=== PATIENT | male | born 1960 | race African-American/Black ===

== ENCOUNTER 2020-04-02 19:25 | Emergency (ER) | payer MEDICARE, OTHER, MEDICAID ==
[~2020-04-02] VITALS: Ht 175.3 cm; Wt 82.0 kg
[~2020-04-02 19:25] MED LIST: LOSA25TA26 PO; METF-414 PO; SERT25TA PO; TRAZ-252 PO; [UNRECOGNIZED DRUG - OTHER]
[2020-04-02 19:45] VITALS: BP 134/76
[2020-04-02] MEDS ORDERED: SODIUM CHLORIDE 0.9% 1,000 ML IV ONE (19:56)
[2020-04-02] MEDS ORDERED: ONDANSETRON HCL 4MG/2ML INJ IV STA (19:56)
[2020-04-02 20:44] LABS: BASOPHILS % 1.7 % (0.0-2.0); EOSINOPHILS % 0.4 % (0.0-5.0); HEMATOCRIT. 33.4 % (42.0-52.0); HEMOGLOBIN. 11.5 g/dL (14.0-18.0); LYMPHOCYTES % 19.5 % (20.0-50.0); MEAN CORPUSCULAR HEMOGLOBIN 32.8 pg (28.0-32.0); MEAN CORPUSCULAR VOLUME 95.7 fL (80.0-94.0); MEAN PLATELET VOLUME 7.6 fl (7.4-10.4); MONOCYTES % 6.1 % (2.0-8.0); NEUTROPHILS % 72.3 % (40.0-76.0); PLATELET 313 x1000/uL (130-400); RED BLOOD CELL COUNT 3.49 mill/uL (4.7-6.1); RED CELL DISTRIBUTION WIDTH 15.2 % (11.6-14.6)
[2020-04-02 20:45] LABS: CLARITY URINE CLEAR (CLEAR); COLOR URINE YELLOW (YELLOW); KETONES URINE TRACE (NEGATIVE); LEUKOCYTE ESTERASE URINE NEGATIVE (NEGATIVE); NITRITE URINE NEGATIVE (NEGATIVE); OCCULT BLOOD URINE NEGATIVE (NEGATIVE); PH URINE 5.5 (4.5-8.0); PROTEIN URINE NEGATIVE (NEGATIVE); SPECIFIC GRAVITY URINE 1.012 (1.005-1.030)
[2020-04-02 20:53] LABS: CHLORIDE 97 mEq/L (98-107)
[2020-04-02 21:25] LABS: ETHANOL BLOOD 423 mg/dL
[2020-04-02 21:30] LABS: *AMPHETAMINES SCREEN URINE NEGATIVE (NEGATIVE); *BARBITURATES SCREEN URINE NEGATIVE (NEGATIVE); *BENZODIAZEPINES SCREEN URINE NEGATIVE (NEGATIVE); *COCAINE SCREEN URINE NEGATIVE (NEGATIVE); OPIATES URINE SCREEN NEGATIVE (NEGATIVE); PHENCYCLIDINE URINE SCREEN NEGATIVE (NEGATIVE)
[2020-04-02 21:31] LABS: CANNABINOID URINE SCREEN NEGATIVE (NEGATIVE)
[2020-04-02 21:33] LABS: METHADONE URINE SCREEN NEGATIVE (NEGATIVE)
== END 2020-04-02 21:30 | disposition left against medical advice (07) ==
LOC: ER 19:25
DX: F10.129 Alcohol abuse with intoxication, unspecified (principal); Y90.8 Blood alcohol level of 240 mg/100 ml or more; E11.9 Type 2 diabetes mellitus without complications; E78.00 Pure hypercholesterolemia, unspecified; I10 Essential (primary) hypertension; Z79.899 Other long term (current) drug therapy
CPT/HCPCS: 36415; 80053; 80305; 80320; 81003; 82962; 83690; 84484; 85025; 96374; 99283; J2405; J7030; G0480